=== PATIENT | female | born 1975 | race Caucasian/White ===

== ENCOUNTER 2017-11-19 15:43 | Emergency (ER) | payer SELFPAY ==
[~2017-11-19] VITALS: Ht 162.6 cm; Wt 93.6 kg
[~2017-11-19 15:43] MED LIST: ANXIETY MED; OXYC1SOL5 PO
[2017-11-19 16:02] VITALS: BP 145/83; PULSE 95; RESP 18; TEMP 97; O2SAT 99
[2017-11-19 16:49] LABS: AMORPHOUS SEDIMENT, URINE RARE; BILIRUBIN, URINE NEG (NEG); BLOOD, URINE NEG (NEG); GLUCOSE,URINE NEG (NEG); KETONE, URINE NEG (NEG); MUCUS URINE FEW /lpf (OCC); NITRITE,URINE NEG (NEG); SQUAMOUS EPITHELIAL CELL URINE 1 /hpf (0-5); URINE COLOR YELLOW (YELLW/STRAW); URINE LEUKOCYTE ESTERASE NEG (NEG)
[2017-11-19 16:50] LABS: AUTOMATED NEUTROPHIL # 11.5 TH/MM3 (1.8-7.7); BASOPHIL # 0.1 TH/MM3 (0-0.2); BASOPHIL % 0.6 % (0.0-2.0); EOSINOPHIL # 0.4 TH/MM3 (0-0.4); EOSINOPHIL % 2.5 % (0.0-4.0); HEMATOCRIT 43.4 % (35.0-46.0); HEMOGLOBIN 14.3 GM/DL (11.6-15.3); LYMPH % 18.5 % (9.0-44.0); LYMPHOCYTE # 2.8 TH/MM3 (1.0-4.8); MEAN CELL VOLUME 87.5 FL (80.0-100.0); MEAN CORPUSCULAR HEMOGLOBIN 28.8 PG (27.0-34.0); MEAN PLATELET VOLUME 7.8 FL (7.0-11.0); MONO % 3.5 % (0.0-8.0); MONOCYTE # 0.5 TH/MM3 (0-0.9); NEUT % 74.9 % (16.0-70.0); PLATELET COUNT 343 TH/MM3 (150-450); RED BLOOD COUNT 4.96 MIL/MM3 (4.00-5.30); RED CELL DISTRIBUTION WIDTH 13.9 % (11.6-17.2); WHITE BLOOD COUNT 15.3 TH/MM3 (4.0-11.0)
[2017-11-19 17:14] LABS: ALBUMIN 4.2 GM/DL (3.4-5.0); AST (GOT) 17 U/L (15-37); BICARBONATE 28.9 MEQ/L (21.0-32.0); BLOOD UREA NITROGEN 10 MG/DL (7-18); CALCIUM 9.5 MG/DL (8.5-10.1); CHLORIDE 106 MEQ/L (98-107); CREATININE 0.79 MG/DL (0.50-1.00); GLOMERULAR FILTRATION RATE 81 ML/MIN (>89); GLUCOSE,RANDOM 97 MG/DL (74-106); SODIUM (NA) 142 MEQ/L (136-145)
[2017-11-19 17:15] LABS: ALT (GPT) 27 U/L (10-53)
[2017-11-19 17:18] LABS: ALKALINE PHOSPHATASE 68 U/L (45-117); TOTAL BILIRUBIN ADULT 0.3 MG/DL (0.2-1.0); TOTAL PROTEIN 7.7 GM/DL (6.4-8.2)
[2017-11-19] MEDS ORDERED: LORA0.5T PO (18:30)
[2017-11-19 18:32] VITALS: BP 122/65; PULSE 86; RESP 18; O2SAT 98
[2017-11-19] MEDS ORDERED: ZOFR4TAB3 SL (18:53)
[2017-11-19] MEDS ORDERED: OMEP40CA2 PO (18:53)
[2017-11-19] MEDS ORDERED: TRAM50TA PO (18:53)
[2017-11-19] MEDS ORDERED: SUCR1TAB PO (18:53)
--- NOTE | 2017-11-19 18:53 | PD ---
HPI Chief Complaint: Abdominal Pain Time Seen by Provider: 18:14 Travel History International Travel<30 days: No Contact w/Intl Traveler<30days: No Traveled to known affect area: No History of Present Illness HPI Is a 42-year-old woman who presents to the emergency department complaining of abdominal pain started this morning. She is a history of cholecystectomy about 2 years ago. States the pain feels similar to when she had her gallbladder taken out. She has had pain similar one time in the past about 2 weeks ago. Pain was worse this morning, is periumbilical and radiates up into the epigastrium. She has had vomiting without significant nausea. No change in her bowel movements. No urinary symptoms. She has a history of GERD, has had GERD since she was a child. She has had endoscopy but that was about 22 years ago or so. She has indigestion or reflux symptoms several times a week. She takes ibuprofen, 4-8 [id number] tablets daily for headaches and back pain. She also smokes tobacco. Denies any alcohol. History Past Medical History Narrative Medical Anxiety GERD LMP: 11/12/17 : 4 Para: 3 Social History Alcohol Use: No Tobacco Use: Yes (1 PPD) Allergies-Medications (Allergen,Severity, Reaction): Coded Allergies: amoxicillin (Unverified Allergy, Severe, Rash, 11/19/17) ITCHING ciprofloxacin (Unverified Allergy, Severe, 11/19/17) codeine (Unverified Allergy, Severe, Anaphylaxis, 11/19/17) penicillin G (Unverified Allergy, Severe, Rash, 11/19/17) Reported Meds & Prescriptions Reported Meds & Active Scripts Active Reported Lorazepam 0.5 Mg Tab 0.5 Mg PO DIRECTED PRN Review of Systems Except as stated in HPI: all other systems reviewed are Neg Physical Exam Narrative GENERAL: 42-year-old woman, appears uncomfortable and nontoxic. SKIN: Focused skin assessment warm/dry. HEAD: Atraumatic. Normocephalic. EYES: Pupils equal and round. No scleral icterus. No injection or drainage. ENT: No nasal bleeding or discharge. Mucous membranes pink and moist. NECK: Trachea midline. No JVD. CARDIOVASCULAR: Regular rate and rhythm. No murmur appreciated. RESPIRATORY: No accessory muscle use. Clear to auscultation. Breath sounds equal bilaterally. GASTROINTESTINAL: Abdomen is obese and soft. Mild epigastric tenderness. No rebound or guarding. No right upper quadrant tenderness. MUSCULOSKELETAL: No obvious deformities. No clubbing. No cyanosis. No edema. NEUROLOGICAL: Awake and alert. No obvious cranial nerve deficits. Motor grossly within normal limits. Normal speech. PSYCHIATRIC: Appropriate mood and affect; insight and judgment normal. Data Data Last Documented VS Vital Signs Date Time Temp Pulse Resp B/P (MAP) Pulse Ox O2 Delivery O2 Flow Rate FiO2 11/19/17 18:32 86 18 122/65 (84) 98 Room Air 11/19/17 16:02 97.0 Orders Orders Complete Blood Count With Diff (11/19/17 16:04) Comprehensive Metabolic Panel (11/19/17 16:04) Lipase (11/19/17 16:04) Urinalysis - C+S If Indicated (11/19/17 16:04) Ed Urine Pregnancytest Poc (11/19/17 16:04) Ns 1000ml Wide Open 2000 Ml/Hr (11/19/17 19:00) Pantoprazole Inj (Protonix Inj) (11/19/17 19:00) Iv Access Insert/Monitor (11/19/17 18:46) Al-Mag Hy-Si 40-40-4 Mg/Ml Liq (Mag-Al P (11/19/17 19:00) Lidocaine 2% Viscous (Xylocaine 2% Visco (11/19/17 19:00) Labs Laboratory Tests Test 11/19/17 16:32 11/19/17 16:36 Urine Color YELLOW Urine Turbidity CLEAR Urine pH 7.0 Urine Specific [place] 1.016 Urine Protein NEG mg/dL Urine Glucose (UA) NEG mg/dL Urine Ketones NEG mg/dL Urine Occult Blood NEG Urine Nitrite NEG Urine Bilirubin NEG Urine Urobilinogen LESS THAN 2.0 MG/DL Urine Leukocyte Esterase NEG Urine RBC 1 /hpf Urine WBC 1 /hpf Urine Squamous Epithelial Cells 1 /hpf Urine Amorphous Sediment RARE Urine Mucus FEW /lpf Microscopic Urinalysis Comment CULT NOT INDICATED White Blood Count 15.3 TH/MM3 Red Blood Count 4.96 MIL/MM3 Hemoglobin 14.3 GM/DL Hematocrit 43.4 % Mean Corpuscular Volume 87.5 FL Mean Corpuscular Hemoglobin 28.8 PG Mean Corpuscular Hemoglobin Concent 33.0 % Red Cell Distribution Width 13.9 % Platelet Count 343 TH/MM3 Mean Platelet Volume 7.8 FL Neutrophils (%) (Auto) 74.9 % Lymphocytes (%) (Auto) 18.5 % Monocytes (%) (Auto) 3.5 % Eosinophils (%) (Auto) 2.5 % Basophils (%) (Auto) 0.6 % Neutrophils # (Auto) 11.5 TH/MM3 Lymphocytes # (Auto) 2.8 TH/MM3 Monocytes # (Auto) 0.5 TH/MM3 Eosinophils # (Auto) 0.4 TH/MM3 Basophils # (Auto) 0.1 TH/MM3 CBC Comment DIFF FINAL Differential Comment Blood Urea Nitrogen 10 MG/DL Creatinine 0.79 MG/DL Random Glucose 97 MG/DL Total Protein 7.7 GM/DL Albumin 4.2 GM/DL Calcium Level 9.5 MG/DL Alkaline Phosphatase 68 U/L Aspartate Amino Transf (AST/SGOT) 17 U/L Alanine Aminotransferase (ALT/SGPT) 27 U/L Total Bilirubin 0.3 MG/DL Sodium Level 142 MEQ/L Potassium Level 3.8 MEQ/L Chloride Level 106 MEQ/L Carbon Dioxide Level 28.9 MEQ/L Anion Gap 7 MEQ/L Estimat Glomerular Filtration Rate 81 ML/MIN Lipase 195 U/L MDM Medical Decision Making Medical Screen Exam Complete: Yes Emergency Medical Condition: Yes Interpretation(s) LABS: CBC is remarkable for mild leukocytosis. CMP is unremarkable. Lipase is normal. Coags are unremarkable. UA is unremarkable. Differential Diagnosis Gastritis, hepatobiliary disease, pancreatitis, choledocholithiasis, other Narrative Course Medical decision making Is a 42-year-old woman presents emerged from with epigastric abdominal pain rating up from the umbilicus. She has a history of GERD, takes ibuprofen daily , she has had her gallbladder out already. She has no lower abdominal tenderness. She has had some vomiting. I think this is likely gastritis. I do not think she needs a CT scan at this time. Last CT scan was about 2 years ago was negative. She looks otherwise well, albeit somewhat uncomfortable. Diagnosis Primary Impression: Gastritis Patient Instructions: General Instructions Additional Instructions: Take omeprazole as prescribed. Take sucralfate as prescribed. The Zofran if needed for nausea or vomiting. Take tramadol as needed for pain. Med/Other Pt SpecificInfo: Prescription(s) given Scripts Tramadol (Tramadol) 50 Mg Tab 50 MG PO Q6H Y for PAIN, #15 TAB 0 Refills Prov: Ryland Hernandez MD 11/19/17 Sucralfate (Sucralfate) 1 Gram Tab 1 GM PO QID for Duodenal ulcer, #120 TAB 0 Refills on empty stomach Prov: Ryland Hernandez MD 11/19/17 Omeprazole (Omeprazole) 40 Mg Cap 40 MG PO DAILY, #30 CAP 0 Refills Prov: Ryland Hernandez MD 11/19/17 Ondansetron Odt (Zofran Odt) 4 Mg Tab 4 MG SL Q8HR Y for Nausea/Vomiting, #15 TAB 0 Refills Prov: Ryland Hernandez MD 11/19/17 Disposition: 01 DISCHARGE HOME Ryland Hernandez MD Nov 19, 2017 18:53
[2017-11-19] MEDS ORDERED: LIDOCAINE VISCOUS 2% SOLN 15 ML UDC PO ONE (19:00)
[2017-11-19] MEDS ORDERED: SODIUM CHLOR 0.9% 1000 ML INJ 1,000 ML IV ONE (19:00)
[2017-11-19] MEDS ORDERED: ALUMINUM/MAGNESIUM/SIMETH 30 ML CUP PO ONE (19:00)
[2017-11-19] MEDS ORDERED: PANTOPRAZOLE SODIUM 40 MG VIAL IV PUSH ONE (19:00)
[2017-11-19 19:59] VITALS: BP 135/70; PULSE 85; RESP 18; O2SAT 98
[2017-11-19] MEDS ORDERED: MORPHINE SULFATE 4 MG/ML INJ IV PUSH ONE (20:00)
[2017-11-19 20:32] VITALS: BP 118/56; TEMP 98.1
== END 2017-11-19 20:34 | disposition home or self-care (01) ==
LOC: NED 15:43 → NEPD 20:34
DX: K29.70 Gastritis, unspecified, without bleeding (principal); K21.9 Gastro-esophageal reflux disease without esophagitis; F41.9 Anxiety disorder, unspecified; F17.200 Nicotine dependence, unspecified, uncomplicated
CPT/HCPCS: 80053; 81001; 83690; 85025; 96361; 96374; 96375; 99284; C9113; J2270; J7030